=== PATIENT | male | born 1970 | race Caucasian/White ===

== ENCOUNTER 2018-01-29 10:00 | Inpatient (IN) | payer OTHER ==
[~2018-01-29] VITALS: Ht 182.9 cm; Wt 80.0 kg
[2018-02-02] MEDS ORDERED: LIDOCAINE/PF 2% 5 ML VIAL IM ONE (03:51)
[2018-02-02] MEDS ORDERED: PROPOFOL 1% 20 ML VIAL IVP ONE (03:51)
[2018-02-02] MEDS ORDERED: MIDAZOLAM HCL 2 MG/2 ML VIAL IVP ONE (04:13)
[2018-02-02] MEDS ORDERED: KETAMINE HCL 50 MG/ML 10 ML VIAL IV ONE (04:13)
[2018-02-02] MEDS ORDERED: RINGERS SOLUTION,LACTATED 1,000 ML IV ONE ×2 (05:47→07:00)
[2018-02-02] MEDS ORDERED: CeFAZolin 1 GM/DEXTROSE 50 ML IV ONE ×2 (05:47→07:00)
[2018-02-02 07:20] LABS: BASOPHILS % (AUTO) 0.9 % (0.0-2.0); EOSINOPHILS % (AUTO) 0.9 % (1.0-6.0); HEMATOCRIT 39.9 % (41-53); HEMOGLOBIN 13.8 g/dL (13.5-17.5); LYMPHOCYTES % (AUTO) 29.7 % (22.0-44.0); MEAN CORPUSCULAR HEMOGLOBIN 40.1 pg (26.0-34.0); MEAN CORPUSCULAR HGB CONC 34.7 G/dL (31.0-37.0); MEAN CORPUSCULAR VOLUME 116 fL (80-100); MONOCYTES # (AUTO) 0.5 K/uL (0.1-1.0); MONOCYTES % (AUTO) 7.1 % (2.0-9.0); NEUTROPHILS # (AUTO) 4.1 K/uL (1.8-7.7); NEUTROPHILS % (AUTO) 61.4 % (40.0-70.0); PLATELET COUNT (AUTO) 378 K/uL (150-450); RED BLOOD CELL COUNT(AUTO) 3.45 MIL/uL (4.50-5.90)
[2018-02-02 07:28] LABS: ANION GAP 5 mmol/L (8-16); CALCIUM, TOTAL 8.6 mg/dL (8.8-10.5); CARBON DIOXIDE 33 mmol/L (22-29); CHLORIDE 104 mmol/L (98-107); CREATININE 1.05 mg/dL (0.60-1.30); GLOMERULAR FILTR. RATE CALC > 60 mL/min (>60); GLUCOSE,RANDOM 89 mg/dL (70-110); SODIUM SERUM 142 mmol/L (136-145); UREA NITROGEN, BLOOD 26 mg/dL (7-18)
[2018-02-02 07:31] LABS: INR 1.1 (0.9-1.1); PROTHROMBIN TIME 11.7 SEC (9.4-11.6)
[2018-02-02] MEDS ORDERED: ACETAMINOPHEN 1000 MG/ISO-OSM 100 ML IV ONE (09:07)
[2018-02-02] MEDS ORDERED: PROPOFOL 1000 MG/ISO-OSM 100 ML IV ONE (09:07)
[2018-02-02] MEDS ORDERED: CELECOXIB 200 MG CAPSULE PO ONE (09:30)
[2018-02-02] MEDS ORDERED: ONDANSETRON HCL 4 MG/2 ML VIAL IVP PRN (09:30)
[2018-02-02] MEDS ORDERED: CYCLOBENZAPRINE HCL 10 MG TABLET PO PRN (09:30)
[2018-02-02] MEDS ORDERED: ZOLPIDEM TARTRATE 10 MG TABLET PO PRN (10:15)
[2018-02-02] MEDS ORDERED: MAG HYDROX/AL HYDROX/SIMETH 30 ML SUSP UDCUP PO PRN (10:15)
[2018-02-02] MEDS ORDERED: DiphenhydrAMINE HCL 50 MG/ML VIAL IVP PRN (10:15)
[2018-02-02] MEDS ORDERED: FentaNYL CITRATE-PF 100 MCG/2 ML VIAL IVP PRN (11:00)
[2018-02-02] MEDS ORDERED: HYDROmorphone 2 MG/ML SYRINGE IVP PRN (11:00)
[2018-02-02] MEDS ORDERED: MEPERIDINE-PF 25 MG/ML VIAL IVP PRN (11:00)
[2018-02-02 14:20] VITALS: BP 131/87
[2018-02-02] MEDS: HYDROmorphone 2 MG/ML SYRINGE IVP PRN ×2 (14:34→21:16)
[2018-02-02 16:17] VITALS: BP 129/86
[2018-02-02] MEDS: ACETAMINOPHEN 1000 MG/ISO-OSM 100 ML IV SCH (17:58)
[2018-02-02 19:57] VITALS: BP 140/89
[2018-02-02] MEDS ORDERED: OXYGEN THERAPY IH SCH (20:00)
[2018-02-02] MEDS: DOCUSATE SODIUM 100 MG CAPSULE PO SCH (21:06)
[2018-02-03 00:29] VITALS: BP 129/83
[2018-02-03] MEDS: ACETAMINOPHEN 1000 MG/ISO-OSM 100 ML IV SCH ×2 (00:29→08:33)
[2018-02-03 04:58] VITALS: BP 124/81
[2018-02-03 07:39] VITALS: BP 123/74
[2018-02-03] MEDS: DOCUSATE SODIUM 100 MG CAPSULE PO SCH (08:33)
[2018-02-03] MEDS ORDERED: OxyCODONE HCL/ACETAMINOPHEN 10-325 MG TABLET PO PRN (10:00)
[2018-02-03 11:42] VITALS: BP 125/91
== END 2018-02-03 14:30 | disposition home or self-care (01) | DRG 473 ==
LOC: 4E 02-02 06:47 → EDBD 02-02 09:30
PROVIDERS: ADMIT Orthopaedic Surgery Orthopaedic Surgery of the Spine; ATTEND Orthopaedic Surgery Orthopaedic Surgery of the Spine
PROC: 0RG20A0 Fusion of 2 or more Cervical Vertebral Joints with Interbody Fusion Device, Anterior Approach, Anterior Column, Open Approach (ICD-10-PCS; 2018-02-02)
PROC: 4A11X4G Monitoring of Peripheral Nervous Electrical Activity, Intraoperative, External Approach (ICD-10-PCS; 2018-02-02)
PROC: 07DS3ZZ Extraction of Vertebral Bone Marrow, Percutaneous Approach (ICD-10-PCS; 2018-02-02)
PROC: 0RB30ZZ Excision of Cervical Vertebral Disc, Open Approach (ICD-10-PCS; principal; 2018-02-02 09:30)
DX: M48.02 Spinal stenosis, cervical region (principal)
CPT/HCPCS: 87081; 93005; 97161; 97165; 97530; 97535; C1713; G0238; J0131; J0690; J1170; J2250; J2704; J3490; J7120